=== PATIENT | female | born 1990 | race Caucasian/White ===

== ENCOUNTER 2022-05-30 16:50 | Emergency (ER) | payer OTHER ==
[~2022-05-30] VITALS: Ht 170.2 cm; Wt 68.0 kg
[2022-05-30 17:04] VITALS: BP 151/73
[2022-05-30 18:27] LABS: BILIRUBIN,URINE NEGATIVE (NEGATIVE); COLOR,URINE YELLOW (YELLOW); LEUKOCYTE ESTERASE ,URINE NEGATIVE (NEGATIVE); NITRITE, URINE NEGATIVE (NEGATIVE); PH,URINE 7.5 (5.0-8.0); PROTEIN,URINE NEGATIVE (NEGATIVE); UGLUCOSE NEGATIVE (NEGATIVE); UROBILINOGEN,URINE 0.2 EU/dL (0.2)
[2022-05-30 18:36] LABS: BACTERIA,URINE 1+ /HPF (None Seen); WBC,URINE 0-2 /HPF (0-3)
[2022-05-30] MEDS ORDERED: METR500T PO (18:41)
[2022-05-30] MEDS ORDERED: ONDA4TAB5 PO (18:41)
--- NOTE | 2022-05-30 18:52 | NUR ---
Patient discharged to home in stable condition. Written and verbal after care instructions given. Patient verbalizes understanding of instruction.
== END 2022-05-30 18:52 | disposition home or self-care (01) ==
LOC: ER 16:54
DX: N89.8 Other specified noninflammatory disorders of vagina (principal); Z87.440 Personal history of urinary (tract) infections; Z88.8 Allergy status to other drugs, medicaments and biological substances; Z79.899 Other long term (current) drug therapy
CPT/HCPCS: 81001; 84703-TC; 87210-TC